=== PATIENT | male | born 1960 | race Caucasian/White ===

== ENCOUNTER 2018-01-23 20:17 | Emergency (ER) | payer MEDICARE, MEDICAID ==
[~2018-01-23] VITALS: Ht 180.3 cm; Wt 86.2 kg
[~2018-01-23 20:17] MED LIST: MORP100T22; TEMA30CA
[2018-01-23 20:28] VITALS: BP 162/94
[2018-01-23 21:20] LABS: Basophils # (auto) 0.1 uL; Basophils % (auto) 0.6 % (0.0-2.0); Eosinophils # (auto) 0 uL; Eosinophils % (auto) 0.1 % (0.0-7.0); Hematocrit 48.7 % (41.0-53.0); Hemoglobin 16.7 g/dL (13.5-17.5); Lymphocytes % (auto) 7.4 % (10.0-50.0); Mean Corpuscular Hemoglobin 29.5 pg (28.0-32.0); Mean Corpuscular Hgb Conc. 34.3 g/dL (32.0-36.0); Mean Corpuscular Volume 86.1 fL (80.0-100.0); Monocytes # (auto) 0.9 uL; Neutrophils # (auto) 10.9 uL; Neutrophils % (auto) 84.9 % (37.0-80.0); Nucleated Red Blood Cells % 0.1 %; Platelet Count (auto) 163 10^3/uL (140-450); Red Blood Cells 5.65 10^6/uL (4.5-5.90); Red Cell Distribution Width 14.2 % (11.8-14.3); White Blood Cell 12.8 10^3/uL (4.4-10.8)
[2018-01-23] MEDS ORDERED: HYDROcodone-ACET 10/325MG TAB PO ONE (21:45)
[2018-01-23] MEDS ORDERED: cefTRIAXone 1GM/10ml IVPUSH 10 ML IV ONE (21:45)
== END 2018-01-23 23:34 | disposition home or self-care (01) ==
LOC: EDBD 20:17 → ER 20:24
DX: J02.9 Acute pharyngitis, unspecified (principal); B37.0 Candidal stomatitis; M79.1 Myalgia; E11.9 Type 2 diabetes mellitus without complications; G89.29 Other chronic pain; M54.2 Cervicalgia; M54.9 Dorsalgia, unspecified; F12.10 Cannabis abuse, uncomplicated; F17.210 Nicotine dependence, cigarettes, uncomplicated; Z88.6 Allergy status to analgesic agent
CPT/HCPCS: 36415; 74176; 84484; 85025; 87070; 93005; 96374

== ENCOUNTER 2019-12-02 13:09 | Emergency (ER) | payer MEDICARE, MEDICAID ==
[~2019-12-02] VITALS: Ht 180.3 cm; Wt 99.8 kg
[~2019-12-02 13:09] MED LIST changes: -MORP100T22; +MORP1TAB15
[2019-12-02 13:24] VITALS: BP 184/96
[2019-12-02] MEDS ORDERED: HYDROcodone-ACET 10/325MG TAB PO ONE (14:00)
[2019-12-02 15:00] LABS: Basophils # (auto) 0.1 uL; Basophils % (auto) 1.2 % (0.0-2.0); Eosinophils # (auto) 0.2 uL; Eosinophils % (auto) 2.7 % (0.0-7.0); Hemoglobin 15.7 g/dL (13.5-17.5); Lymphocytes # (auto) 1.1 uL; Lymphocytes % (auto) 16.7 % (10.0-50.0); Mean Corpuscular Hemoglobin 30.5 pg (28.0-32.0); Mean Corpuscular Volume 87.1 fL (80.0-100.0); Monocytes # (auto) 0.6 uL; Monocytes % (auto) 9.3 % (0.0-12.0); Neutrophils # (auto) 4.6 uL; Neutrophils % (auto) 70.1 % (37.0-80.0); Platelet Count (auto) 147 10^3/uL (140-450); Red Blood Cells 5.17 10^6/uL (4.5-5.90); White Blood Cell 6.6 10^3/uL (4.4-10.8)
[2019-12-02 15:27] LABS: Albumin 2.2 g/dL (3.4-5.0); Calcium 8.5 mg/dL (8.5-10.1); Potassium 4.6 mmol/L (3.5-5.1)
[2019-12-02 15:31] LABS: BUN/Creatinine Ratio 15.7; Bilirubin, Total 0.6 mg/dL (0.2-1.0); Total Protein 6.1 g/dL (6.4-8.2)
== END 2019-12-02 20:16 | disposition left against medical advice (07) ==
LOC: ER 13:09 → EDBD 13:09 → ER 20:16
DX: R51 Headache (principal); I10 Essential (primary) hypertension; E11.65 Type 2 diabetes mellitus with hyperglycemia; E43 Unspecified severe protein-calorie malnutrition; Z68.30 Body mass index [BMI] 30.0-30.9, adult; Z87.11 Personal history of peptic ulcer disease
CPT/HCPCS: 36415; 70450; 71046; 80053; 85025; 93005

== ENCOUNTER 2020-02-01 12:14 | Inpatient (IN) | payer MEDICARE, MEDICAID ==
[~2020-02-01] VITALS: Ht 180.3 cm; Wt 102.7 kg
[2020-02-01 13:36] LABS: Basophils # (auto) 0.1 10 ^3/uL (0-0.2); Basophils % (auto) 1.5 % (0.0-2.0); Eosinophils # (auto) 0.2 10 ^3/uL (0-0.8); Hemoglobin 14.6 g/dL (13.5-17.5); Lymphocytes # (auto) 0.6 10 ^3/uL (0.4-5.4); Lymphocytes % (auto) 15.1 % (10.0-50.0); Mean Corpuscular Hemoglobin 30.3 pg (28.0-32.0); Mean Corpuscular Hgb Conc. 34.7 g/dL (32.0-36.0); Mean Corpuscular Volume 87.4 fL (80.0-100.0); Monocytes # (auto) 0.6 10 ^3/uL (0-1.3); Monocytes % (auto) 15.7 % (0.0-12.0); Neutrophils # (auto) 2.4 10 ^3/uL (1.6-8.6); Neutrophils % (auto) 61.7 % (37.0-80.0); Nucleated Red Blood Cells % 0.1 %; Platelet Count (auto) 116 10^3/uL (140-450); Red Blood Cells 4.81 10^6/uL (4.5-5.90); Red Cell Distribution Width 14.1 % (11.8-14.3); White Blood Cell 3.8 10^3/uL (4.4-10.8)
[2020-02-01 13:54] LABS: Albumin 2.2 g/dL (3.4-5.0); Anion Gap 5 (5-15); Blood Urea Nitrogen 17 mg/dL (7-18); Calcium 7.8 mg/dL (8.5-10.1); Carbon Dioxide 28 mmol/L (21-32); Chloride 105 mmol/L (98-107); Glucose 324 mg/dL (74-106); Potassium 4.3 mmol/L (3.5-5.1); Sodium 138 mmol/L (136-145)
[2020-02-01 14:01] LABS: Alanine Aminotransferase 31 U/L (16-61); Alkaline Phosphatase 181 U/L (45-117); Aspartate Aminotransferase 31 U/L (15-37); BUN/Creatinine Ratio 13.6; Bilirubin, Total 0.5 mg/dL (0.2-1.0); GFR African American 76 mL/min; GFR Non-African American 63 mL/min; Total Protein 5.9 g/dL (6.4-8.2)
[2020-02-01 14:29] LABS: INR 1.17 (0.9-1.15); Partial Thromboplastin Time 33.1 sec (23.64-32.05)
[2020-02-01] MEDS ORDERED: ONDANSETRON HCL 4 MG/2 ML VIAL IV ONE (14:45)
[2020-02-01] MEDS ORDERED: HYDROcodone-ACET 10/325MG TAB PO ONE (14:45)
[2020-02-01] MEDS ORDERED: MORPHINE SULF INJ 2 MG/ML SYRINGE 1ML IV ONE (14:45)
[2020-02-01 16:19] LABS: Urine Bacteria FEW /hpf (None Seen); Urine Blood 1+ /uL (Negative); Urine Specific Gravity 1.013 (1.001-1.035); Urine WBC 1 /hpf (0 - 3)
[2020-02-01] MEDS ORDERED: HYDROcodone-ACET 5/325MG TAB PO PRN (21:00)
[2020-02-01] MEDS ORDERED: NITROGLYCERIN 0.4 MG SL TAB SL PRN (21:00)
[2020-02-01] MEDS ORDERED: MORPHINE SULF INJ 2 MG/ML SYRINGE 1ML IV PRN (21:00)
[2020-02-01] MEDS ORDERED: IOHEXOL 350 MG/ML 100ML IJ ONE (21:14)
[2020-02-01] MEDS ORDERED: LISINOPRIL 20 MG TAB PO SCH (22:00)
--- NOTE | 2020-02-01 22:28 | NUR ---
PATIENT ARRIVED VIA WHEELCHAIR FROM EMERGENCY ROOM. HE STATES HAVING NO PAIN CURRENTLY. HE HAS NO COMPLAINTS OF SHORTNESS OF BREATH EITHER. PATIENT HAS RIGHT SIDE WEAKNESS FROM A PREVIOUS STROKE. HE IS ABLE TO AMBULATE WITH MINIMUM ASSISTANCE. HE HAS 2-3+ EDEMA BILATERALLY IN HIS LOWER EXTREMITIES. HE ALSO HAS NON PITTING EDEMA IN BILATERAL UPPER EXTREMITIES. BED IS LOKCED IN LOWEST POSITION WITH SIDE RAILS UP X2. WILL CONTINUE TO MONITOR.
[2020-02-01] MEDS: hydrALAZINE HCL 20 MG/ML VL IV PRN (22:55)
[2020-02-01 23:39] VITALS: BP 182/104
[2020-02-02] VITALS (8 sets, daily range): BP systolic 126–171; BP diastolic 57–102
[2020-02-02] MEDS ORDERED: traMADol HCL 50 MG TAB PO ONE (01:00)
[2020-02-02] MEDS: TEMAZEPAM 15 MG CAP PO PRN ×2 (01:17→23:34)
--- NOTE | 2020-02-02 02:00 | NUR ---
SENT MRSA SWAB TO LAB
[2020-02-02] MEDS ORDERED: GABA300C10 PO (02:47)
[2020-02-02] MEDS ORDERED: PANT-36 PO (02:47)
[2020-02-02] MEDS ORDERED: RIV20T PO (02:47)
[2020-02-02] MEDS ORDERED: LISI-646 PO (02:47)
[2020-02-02] MEDS ORDERED: CLIN300C8 PO (02:47)
[2020-02-02] MEDS ORDERED: TRAZ50TA2 PO (02:47)
--- NOTE | 2020-02-02 04:55 | NUR ---
PAGED DR. MILLS FOR POSSIBLE INSULIN SLIDING SCALE DUE TO PATIENT BEING DIABETIC AND PAIN MEDICATION. PATIENT STATES HE DOES NOT LIKE [facility]. AWAITING CALL BACK.
[2020-02-02] MEDS: hydrALAZINE HCL 20 MG/ML VL IV PRN (05:33)
--- NOTE | 2020-02-02 06:45 | NUR ---
PATIENT WAS FOUND ON FLOOR BY HIS BEDSIDE. HE WAS SLOW TO RESPOND AT 1ST BUT EVENTUALLY CAME TO BE MORE ALERT. I MYSELF WELL THREE OTHER STAFF MEMBERS WERE ABLE TO GET HIM BACK INTO BED. THE BED ALARM ON THE BED WAS ON BUT THE SCALE ON THE BED WAS NOT WORKING THEREFORE THE BE ALARM DID NOT GO OFF. SWAPPED BEDS WITH WORKING BED ALARM.
--- NOTE | 2020-02-02 06:55 | NUR ---
DR. Loly SERNA CALLED BACK. RECEIVED ORDER FOR PAIN MEDICATION, INSULIN SLIDING SCALE. NOTIFIED HIM THAT PATIENT HAD AN UNWITNESSED FALL APPROXIMATELY 10 MINUTES AGO. ORDER RECEIVED FOR A CT HEAD.
[2020-02-02] MEDS ORDERED: DEXTROSE (50%) 50ML SYRG IV PRN (07:00)
--- NOTE | 2020-02-02 07:30 | NUR ---
Opening Shift Note Assumed care of patient, awake and alert. No S/S of distress/SOB or pain. Instructed on POC and to call for assist PRN, will continue to monitor for changes Q1hr and PRN. Fall precautions in place per safety protocol.
[2020-02-02] MEDS: ACCU-CHEK COMFORT CURVE STRIP VI SCH ×4 (07:45→22:36)
[2020-02-02] MEDS: InsuLIN REG 1unit/0.01ml Soln (100units/ml) SC SCH ×4 (07:46→22:35)
[2020-02-02] MEDS ORDERED: LISINOPRIL 20 MG TAB PO SCH (08:00)
[2020-02-02] MEDS ORDERED: MORPHINE SULF INJ 2 MG/ML SYRINGE 1ML IV PRN (08:00)
[2020-02-02] MEDS: ONDANSETRON HCL 4 MG/2 ML VIAL IV PRN (08:55)
[2020-02-02 09:47] LABS: Calcium 7.9 mg/dL (8.5-10.1); Potassium 4.4 mmol/L (3.5-5.1)
[2020-02-02 09:54] LABS: Albumin 2.3 g/dL (3.4-5.0); BUN/Creatinine Ratio 15.9; Bilirubin, Total 0.6 mg/dL (0.2-1.0)
[2020-02-02] MEDS: CLOPIDOGREL BISULFATE 75 MG TAB PO SCH (10:56)
[2020-02-02] MEDS: LISINOPRIL 20 MG TAB PO SCH ×2 (10:58→22:09)
[2020-02-02] MEDS: dilTIAZem 120MG ER CAP PO SCH (10:58)
--- NOTE | 2020-02-02 13:00 | NUR ---
Hospitalist at bedside Spoke to MD Curtis regarding patient complaining of a headache and requesting ibuprofen. Received orders for Ibuprofen 800mg PO TID PRN and an order for Flexeril 10 mg PO TID for muscle spasms. Orders read back and verified. Will carry out new orders and will cont to monitor patient.
[2020-02-02] MEDS: CYCLOBENZAPRINE HCL 10 MG TAB PO SCH ×2 (13:16→22:09)
[2020-02-02] MEDS: IBUPROFEN 800 MG TAB PO PRN ×2 (13:16→22:10)
--- NOTE | 2020-02-02 19:08 | NUR ---
Endorsed care to night Teto Chen. Patient resting in bed, no distress, sob, or pain at this time.
--- NOTE | 2020-02-03 00:03 | NUR ---
DR. Loly SERNA BEDSIDE
[2020-02-03 05:00] VITALS: BP 123/75
[2020-02-03 05:06] LABS: Protein, Urine 1055.9 mg/dL (0.0-11.9)
[2020-02-03] MEDS: CYCLOBENZAPRINE HCL 10 MG TAB PO SCH ×2 (06:15→14:15)
[2020-02-03 06:36] LABS: Calcium 7.8 mg/dL (8.5-10.1); Potassium 3.8 mmol/L (3.5-5.1)
[2020-02-03 06:39] LABS: BUN/Creatinine Ratio 17.6
[2020-02-03] MEDS: InsuLIN REG 1unit/0.01ml Soln (100units/ml) SC SCH ×3 (07:02→17:25)
[2020-02-03] MEDS: ACCU-CHEK COMFORT CURVE STRIP VI SCH ×3 (07:02→17:26)
--- NOTE | 2020-02-03 07:15 | NUR ---
Opening Shift Note Assumed care of patient, awake and alert. Patient on 2L NC. No S/S of distress/SOB or pain. Instructed on POC and to call for assist PRN, will continue to monitor for changes Q1hr and PRN. Fall precautions in place per safety protocol.
[2020-02-03 09:00] VITALS: BP 137/79
[2020-02-03] MEDS ORDERED: cefTRIAXone 1GM/50ML D5W 50 ML IV SCH (09:00)
[2020-02-03] MEDS: dilTIAZem 120MG ER CAP PO SCH (10:25)
[2020-02-03] MEDS: CLOPIDOGREL BISULFATE 75 MG TAB PO SCH (10:25)
[2020-02-03] MEDS: LISINOPRIL 20 MG TAB PO SCH (10:26)
[2020-02-03 13:00] VITALS: BP 161/82
--- NOTE | 2020-02-03 13:15 | NUR ---
Patient requesting Xaralto, cough syrup for sore throat and coughing. Called MD Curtis regarding patient requesting received new orders for med neb treatments, cough syrup and xaralto meds. Medication orders were read back and verified. Will carry our new orders and will cont to monitor patient.
[2020-02-03] MEDS: ONDANSETRON HCL 4 MG/2 ML VIAL IV PRN (13:20)
[2020-02-03] MEDS ORDERED: PROMETHAZINE W/CODEINE 5 ML ORAL SYRUP PO PRN (14:15)
[2020-02-03] MEDS: IBUPROFEN 800 MG TAB PO PRN (14:41)
[2020-02-03 17:00] VITALS: BP 142/72
[2020-02-03] MEDS ORDERED: RIVAROXABAN 20 MG TAB PO SCH (18:00)
[2020-02-03] MEDS ORDERED: IPRATROPIUM BROM 0.5 MG/2.5ML INH SOL NEB SCH (18:00)
[2020-02-03] MEDS ORDERED: ALBUTEROL SULF 2.5 MG/0.5ML(0.5%) NEB SOLN NEB SCH (18:00)
--- NOTE | 2020-02-03 18:29 | NUR ---
Respiratory note: PT REFUSING BREATHING TX AT THIS TIME DUE TO PT NOT FEELING WELL AND THROWING UP. PT ON RA. NO RESP DISTRESS NOTED. SPO2 97%, HR 90. RR 22. BS CLR AND DIM AT BASES. WILL CONTINUE TO MONITOR PT T/O SHIFT.
--- NOTE | 2020-02-03 19:18 | NUR ---
Endorsed care to night MOI Hernandez.
--- NOTE | 2020-02-03 19:20 | NUR ---
opening note pt states that he wants to leave now because he is not getting the medications he wants. He explained that he takes 600mg of neurontin at bedtime, as well as 300mg at midnight. I explained to him that I will be contacting his Dr. Curtis in regards to patient resuming all of his home medications. The patient insisted that he wanted to leave regardless of what happens.
--- NOTE | 2020-02-03 19:45 | NUR ---
pt approached the nursing station, and wanted someone to take his IV out. He stated that he called his son, and his son will be picking him up in the front lobby shortly. I explained to him that I am currently following up with his concerns. However, patient stated that I dont "have to worry about it, I will be ok". Patient stated that he was going to leave "no matter what". I explained to him that he was leaving against medical advice. I advised him of the risks of leaving without receiving the proper care necessary for his medical condition. Pt explained that he understood the risks, however still "wanted to leave".
--- NOTE | 2020-02-03 20:25 | NUR ---
pt signed the AMA form, and has received his home medications from the pharmacy. IV was d/c, as well as telebox. at this time, pt stated that he has talked with dr Loly Curtis a minute ago, and the patent states that Dr. Curtis wants him to come to the office for followup on Thursday.
--- NOTE | 2020-02-03 20:30 | NUR ---
pt walked out of [id number], and has left [facility] A[facility].
--- NOTE | 2020-02-03 20:52 | NUR ---
Notified Dr. Curtis of pt leaving [facility] AMA.
== END 2020-02-03 20:30 | disposition left against medical advice (07) | DRG 305 ==
LOC: EDUNIT# 12:14 → ER 12:14 → EDBD 12:14 → TELE 12:15 → TELE-CENTR 22:25
PROVIDERS: ADMIT Specialist; ATTEND Specialist
DX: I16.1 Hypertensive emergency (principal); G81.94 Hemiplegia, unspecified affecting left nondominant side; R51 Headache; E11.22 Type 2 diabetes mellitus with diabetic chronic kidney disease; N18.9 Chronic kidney disease, unspecified; E11.21 Type 2 diabetes mellitus with diabetic nephropathy; I12.9 Hypertensive chronic kidney disease with stage 1 through stage 4 chronic kidney disease, or unspecified chronic kidney disease; I25.10 Atherosclerotic heart disease of native coronary artery without angina pectoris; Z80.0 Family history of malignant neoplasm of digestive organs; Z80.8 Family history of malignant neoplasm of other organs or systems; Z82.49 Family history of ischemic heart disease and other diseases of the circulatory system; Z86.73 Personal history of transient ischemic attack (TIA), and cerebral infarction without residual deficits; Z86.718 Personal history of other venous thrombosis and embolism; Z83.3 Family history of diabetes mellitus; Z87.441 Personal history of nephrotic syndrome; Z87.11 Personal history of peptic ulcer disease; Z53.29 Procedure and treatment not carried out because of patient's decision for other reasons
CPT/HCPCS: 36415; 70450; 71045; 71275; 80048; 80053; 80061; 81001; 82088; 82306; 82533; 82570; 82962; 83036; 83735; 83835; 84156; 84244; 84443; 84484; 85025; 85610; 85730; 87081; 93005; 93971; 96374; 96375; G0378; J0696; J1815; J2405

== ENCOUNTER 2024-02-22 01:01 | Inpatient (IN) | payer MEDICARE, MEDICAID ==
[~2024-02-22] VITALS: Ht 180.3 cm; Wt 82.4 kg
[~2024-02-22 01:01] MED LIST changes: +ASPI-543 PO; +CLOP75TA70 PO; +CYCL-611 PO; +FERR1TAB17 PO; +INSU1INJ30; -MORP1TAB15; +NIFE90TA75 PO; +PANT40T PO; +ROPI5TAB20 PO; +SEVE800T10 PO; +SODI5PAK PO; -TEMA30CA; +TRAM50TA2 PO; +TRAZ1TAB12 PO
[2024-02-22 01:41] LABS: Basophils # (auto) 0.1 10 ^3/uL (0-0.2); Basophils % (auto) 0.9 % (0.0-2.0); Eosinophils # (auto) 0.3 10 ^3/uL (0-0.8); Eosinophils % (auto) 3.8 % (0.0-7.0); Hematocrit 34.1 % (41.0-53.0); Hemoglobin 11.4 g/dL (13.5-17.5); Lymphocytes # (auto) 0.5 10 ^3/uL (0.4-5.4); Lymphocytes % (auto) 6.7 % (10.0-50.0); Mean Corpuscular Hgb Conc. 33.6 g/dL (32.0-36.0); Mean Corpuscular Volume 92.5 fL (80.0-100.0); Monocytes # (auto) 0.9 10 ^3/uL (0-1.3); Monocytes % (auto) 13.2 % (0.0-12.0); Neutrophils # (auto) 5.2 10 ^3/uL (1.6-8.6); Neutrophils % (auto) 75.4 % (37.0-80.0); Red Blood Cells 3.68 10^6/uL (4.5-5.90); Red Cell Distribution Width 14.4 % (11.8-14.3); White Blood Cell 6.9 10^3/uL (4.4-10.8)
[2024-02-22 01:45] VITALS: PULSE 78; RESP 15; O2SAT 99
[2024-02-22 01:58] LABS: Alanine Aminotransferase 49 U/L (7-40); Albumin 2.8 g/dL (3.2-4.8); Alkaline Phosphatase 522 U/L (46-116); Anion Gap 10 (5-15); Aspartate Aminotransferase 62 U/L (13-40); BUN/Creatinine Ratio 9.8 (10.0-20.0); Bilirubin, Total 0.3 mg/dL (0.2-1.0); Calcium 8.2 mg/dL (8.7-10.4); Carbon Dioxide 26 mmol/L (20-30); Chloride 95 mmol/L (98-107); Glucose 181 mg/dL (74-106); Lipase 39 U/L (12-53); Potassium 5.3 mmol/L (3.5-5.1); Sodium 131 mmol/L (136-145); Total Protein 5.2 g/dL (5.7-8.2)
[2024-02-22 02:13] LABS: Blood Urea Nitrogen 82 mg/dL (9-23)
[2024-02-22] MEDS: InsuLIN REG 1unit/0.01ml Soln (100units/ml) IV ONE (03:30)
[2024-02-22] MEDS: CALCIUM GLUC 1,000mg/50ml-NS 50 ML IV ONE (03:31)
[2024-02-22] MEDS: DEXTROSE (50%) 50ML SYRG IV ONE (03:32)
[2024-02-22] MEDS: SODIUM BICARB 8.4% 50Meq/50ml SYR INJ IV ONE (03:32)
[2024-02-22] MEDS: ALBUTEROL SULF 2.5 MG/0.5ML(0.5%) NEB SOLN NEB ONE (03:40)
[2024-02-22] MEDS: FUROSEMIDE 20 MG/2 ML VIAL IV ONE (03:50)
[2024-02-22] MEDS: SODIUM ZIRCONIUM CYCL 10 GM PAK PO ONE (03:50)
[2024-02-22] MEDS: ONDANSETRON HCL 4 MG/2 ML VIAL IV ONE (03:51)
[2024-02-22] MEDS: MORPHINE SULFATE INJ 2 MG/ml SYRG IV ONE (03:51)
[2024-02-22 07:40] VITALS: PULSE 85; RESP 13; O2SAT 98
[2024-02-22] MEDS ORDERED: DEXTROSE (50%) 50ML SYRG IV PRN (10:30)
[2024-02-22 11:16] LABS: Potassium 5.4 mmol/L (3.5-5.1)
[2024-02-22 11:23] LABS: Magnesium 2.2 mg/dL (1.6-2.6)
[2024-02-22] MEDS: ONDANSETRON HCL 4 MG/2 ML VIAL IV PRN (11:56)
[2024-02-22] MEDS: MORPHINE SULFATE INJ 2 MG/ml SYRG IV PRN (11:57)
[2024-02-22 11:59] LABS: INR 1.05 (0.9-1.15)
[2024-02-22] MEDS: ENOXAPARIN SOD 30 MG/0.3 ML SYRINGE SC SCH (11:59)
[2024-02-22] MEDS: SEVELAMER 800 MG TAB PO SCH (12:00)
[2024-02-22] MEDS: ACCU-CHEK COMFORT CURVE STRIP VI SCH (12:08)
[2024-02-22] MEDS: InsuLIN REG 1unit/0.01ml Soln (100units/ml) SC SCH (12:18)
[2024-02-22] MEDS ORDERED: ALBUMIN 25% 100 ML IV PRN (12:45)
[2024-02-22] MEDS ORDERED: LIDOCAINE 1% HCL (LOCAL ANESTH.) INJ 20ML MDV ID ONE (13:00)
[2024-02-22] MEDS: SODIUM CHL 0.9% 1000 ML BAG XX ONE (15:20)
[2024-02-22] MEDS: LIDOCAINE 1% HCL (LOCAL ANESTH.) INJ 20ML MDV ID ONE (15:20)
[2024-02-22 19:00] VITALS: PULSE 74; RESP 17; O2SAT 96
[2024-02-22 20:00] VITALS: PULSE 74
[2024-02-22 21:00] VITALS: BP 169/65; PULSE 82; RESP 20; TEMP 97.4; O2SAT 95
[2024-02-23] VITALS (8 sets, daily range): BP systolic 99–162; BP diastolic 45–89; PULSE 80–94; RESP 18–20; TEMP 97.3–98.3; O2SAT 93–99
[2024-02-23] MEDS: NIFEdipine ER 30 MG TAB PO SCH (06:15)
[2024-02-23 09:57] LABS: Basophils # (auto) 0.1 10 ^3/uL (0-0.2); Basophils % (auto) 0.7 % (0.0-2.0); Eosinophils # (auto) 0.3 10 ^3/uL (0-0.8); Eosinophils % (auto) 3.6 % (0.0-7.0); Hematocrit 38.2 % (41.0-53.0); Hemoglobin 12.7 g/dL (13.5-17.5); Lymphocytes # (auto) 0.5 10 ^3/uL (0.4-5.4); Lymphocytes % (auto) 6.9 % (10.0-50.0); Mean Corpuscular Hemoglobin 30.9 pg (28.0-32.0); Mean Corpuscular Hgb Conc. 33.3 g/dL (32.0-36.0); Mean Corpuscular Volume 92.8 fL (80.0-100.0); Monocytes # (auto) 1.3 10 ^3/uL (0-1.3); Monocytes % (auto) 16.3 % (0.0-12.0); Neutrophils # (auto) 5.6 10 ^3/uL (1.6-8.6); Neutrophils % (auto) 72.5 % (37.0-80.0); Nucleated Red Blood Cells % 0.1 %; Red Blood Cells 4.11 10^6/uL (4.5-5.90); Red Cell Distribution Width 14.9 % (11.8-14.3); White Blood Cell 7.8 10^3/uL (4.4-10.8)
[2024-02-23 10:11] LABS: Alanine Aminotransferase 39 U/L (7-40); Alkaline Phosphatase 466 U/L (46-116); Calcium 8.4 mg/dL (8.5-10.1); Carbon Dioxide 30 mmol/L (20-30); Chloride 98 mmol/L (98-107)
[2024-02-23 10:12] LABS: Albumin 3.1 g/dL (3.2-4.8); Anion Gap 6 (5-15); Aspartate Aminotransferase 40 U/L (13-40); BUN/Creatinine Ratio 7.3 (10.0-20.0); Bilirubin, Total 0.4 mg/dL (0.2-1.0); Glucose 151 mg/dL (74-106); Sodium 134 mmol/L (136-145); Total Protein 5.6 g/dL (5.7-8.2)
[2024-02-23 10:22] LABS: Blood Urea Nitrogen 49 mg/dL (9-23)
[2024-02-23 10:24] LABS: Potassium 5.9 mmol/L (3.5-5.1)
[2024-02-23] MEDS: FUROSEMIDE 20 MG/2 ML VIAL IV ONE (11:15)
[2024-02-23] MEDS: ASPirin-EC 81 mg tab PO SCH (11:52)
[2024-02-23] MEDS: CLOPIDOGREL BISULFATE 75 MG TAB PO SCH (11:52)
[2024-02-23] MEDS: PANTOPRAZOLE 40 MG TAB PO SCH (11:52)
[2024-02-23] MEDS: ALBUTEROL SULF 2.5 MG/0.5ML(0.5%) NEB SOLN NEB ONE (12:16)
[2024-02-23] MEDS: DEXTROSE (50%) 50ML SYRG IV ONE (13:30)
[2024-02-23] MEDS: CALCIUM GLUC 1,000mg/50ml-NS 50 ML IV ONE (13:31)
[2024-02-23] MEDS: InsuLIN REG 1unit/0.01ml Soln (100units/ml) IV ONE (13:36)
[2024-02-23] MEDS: SODIUM ZIRCONIUM CYCL 10 GM PAK PO ONE (14:21)
[2024-02-23] MEDS ORDERED: B-CO-5 PO (14:58)
[2024-02-23] MEDS ORDERED: SENN1TAB14 PO (14:58)
[2024-02-23] MEDS ORDERED: ASPI-543 PO (14:58)
[2024-02-23] MEDS ORDERED: BISA10SU52 PR (14:58)
[2024-02-23] MEDS ORDERED: DOCU-94 PO (14:58)
[2024-02-23] MEDS ORDERED: TRIA0.25 PO (14:58)
[2024-02-24] VITALS (8 sets, daily range): BP systolic 127–168; BP diastolic 57–80; PULSE 77–93; RESP 16–20; TEMP 97.3–98.1; O2SAT 91–97
[2024-02-24 06:24] LABS: Basophils # (auto) 0.1 10 ^3/uL (0-0.2); Basophils % (auto) 0.9 % (0.0-2.0); Eosinophils # (auto) 0.3 10 ^3/uL (0-0.8); Eosinophils % (auto) 3.8 % (0.0-7.0); Hematocrit 33.3 % (41.0-53.0); Hemoglobin 11.3 g/dL (13.5-17.5); Lymphocytes # (auto) 0.9 10 ^3/uL (0.4-5.4); Lymphocytes % (auto) 10.7 % (10.0-50.0); Mean Corpuscular Hemoglobin 31.7 pg (28.0-32.0); Mean Corpuscular Volume 93.2 fL (80.0-100.0); Monocytes # (auto) 1.3 10 ^3/uL (0-1.3); Monocytes % (auto) 15.2 % (0.0-12.0); Neutrophils # (auto) 5.8 10 ^3/uL (1.6-8.6); Neutrophils % (auto) 69.4 % (37.0-80.0); Nucleated Red Blood Cells % 0.1 %; Red Blood Cells 3.58 10^6/uL (4.5-5.90); Red Cell Distribution Width 14.5 % (11.8-14.3); White Blood Cell 8.4 10^3/uL (4.4-10.8)
[2024-02-24 06:37] LABS: Alanine Aminotransferase 35 U/L (7-40); Albumin 3.1 g/dL (3.2-4.8); Alkaline Phosphatase 392 U/L (46-116); Anion Gap 10 (5-15); Aspartate Aminotransferase 36 U/L (13-40); BUN/Creatinine Ratio 8.3 (10.0-20.0); Calcium 8.6 mg/dL (8.5-10.1); Carbon Dioxide 28 mmol/L (20-30); Chloride 95 mmol/L (98-107); Glucose 113 mg/dL (74-106); Sodium 133 mmol/L (136-145)
[2024-02-24 06:38] LABS: Bilirubin, Total 0.4 mg/dL (0.2-1.0); Total Protein 5.5 g/dL (5.7-8.2)
[2024-02-24 06:50] LABS: Blood Urea Nitrogen 61 mg/dL (9-23)
[2024-02-24 06:52] LABS: Potassium 5.6 mmol/L (3.5-5.1)
[2024-02-24] MEDS: SODIUM CHL 0.9% 1000 ML BAG XX ONE (07:00)
[2024-02-24] MEDS: ALBUTEROL SULF 2.5 MG/0.5ML(0.5%) NEB SOLN NEB ONE (08:15)
[2024-02-24] MEDS: DEXTROSE (50%) 50ML SYRG IV ONE (08:15)
[2024-02-24] MEDS: InsuLIN REG 1unit/0.01ml Soln (100units/ml) IV ONE (08:15)
[2024-02-24] MEDS: FUROSEMIDE 20 MG/2 ML VIAL IV ONE (08:15)
[2024-02-24] MEDS: CALCIUM GLUC 1,000mg/50ml-NS 50 ML IV ONE (08:15)
[2024-02-24 18:57] LABS: Chloride 97 mmol/L (98-107); Potassium 4.6 mmol/L (3.5-5.1); Sodium 134 mmol/L (136-145)
[2024-02-24 18:58] LABS: Anion Gap 5 (5-15); Calcium 8.7 mg/dL (8.5-10.1); Carbon Dioxide 32 mmol/L (20-30)
[2024-02-24 19:03] LABS: BUN/Creatinine Ratio 7.2 (10.0-20.0); Glucose 156 mg/dL (74-106)
[2024-02-24 19:06] LABS: Blood Urea Nitrogen 38 mg/dL (9-23)
[2024-02-24] MEDS: DOCUSATE SOD 100 MG CAP PO PRN (22:29)
[2024-02-24] MEDS: hydrALAZINE HCL 20 MG/ML VL IV ONE (23:07)
[2024-02-25 05:00] VITALS: BP 180/89; PULSE 87; RESP 18; TEMP 97.5; O2SAT 99
[2024-02-25 05:56] LABS: Basophils # (auto) 0.1 10 ^3/uL (0-0.2); Eosinophils # (auto) 0.2 10 ^3/uL (0-0.8); Eosinophils % (auto) 3.5 % (0.0-7.0); Hematocrit 35.1 % (41.0-53.0); Hemoglobin 11.9 g/dL (13.5-17.5); Lymphocytes # (auto) 0.7 10 ^3/uL (0.4-5.4); Lymphocytes % (auto) 9.5 % (10.0-50.0); Mean Corpuscular Hemoglobin 31.3 pg (28.0-32.0); Mean Corpuscular Hgb Conc. 33.8 g/dL (32.0-36.0); Mean Corpuscular Volume 92.6 fL (80.0-100.0); Monocytes # (auto) 1.1 10 ^3/uL (0-1.3); Monocytes % (auto) 16.6 % (0.0-12.0); Neutrophils # (auto) 4.7 10 ^3/uL (1.6-8.6); Neutrophils % (auto) 69.4 % (37.0-80.0); Red Blood Cells 3.79 10^6/uL (4.5-5.90); Red Cell Distribution Width 14.4 % (11.8-14.3); White Blood Cell 6.8 10^3/uL (4.4-10.8)
[2024-02-25 06:08] LABS: Alanine Aminotransferase 28 U/L (7-40); Alkaline Phosphatase 448 U/L (46-116); Anion Gap 7 (5-15); Aspartate Aminotransferase 32 U/L (13-40); Blood Urea Nitrogen 35 mg/dL (9-23); Calcium 8.7 mg/dL (8.7-10.4); Carbon Dioxide 29 mmol/L (20-30); Chloride 96 mmol/L (98-107); Glucose 147 mg/dL (74-106); Potassium 5.1 mmol/L (3.5-5.1); Sodium 132 mmol/L (136-145)
[2024-02-25 06:09] LABS: Bilirubin, Total 0.4 mg/dL (0.2-1.0); Total Protein 5.5 g/dL (5.7-8.2)
[2024-02-25 07:35] VITALS: BP 140/104; PULSE 82; RESP 18
[2024-02-25 08:00] VITALS: PULSE 84
[2024-02-25 09:00] VITALS: BP 162/66; PULSE 81; RESP 18; TEMP 98.2; O2SAT 98
[2024-02-25] MEDS: HEPARIN SODIUM (PORCINE) 5000 UNITS/ML 1ML VIAL SC SCH (10:00)
[2024-02-25 13:00] VITALS: BP 136/73; PULSE 93; RESP 14; TEMP 97.4; O2SAT 98
[2024-02-25] MEDS: ALBUMIN 25% IV ONE (13:11)
[2024-02-25 13:43] VITALS: BP 134/66; PULSE 93; RESP 17
== END 2024-02-25 16:30 | disposition home or self-care (01) | DRG 391 ==
LOC: EDBD 01:01 → ER 01:01 → TELE-EAST 10:38 → TELE 10:38 → TELE-EAST 18:35
PROVIDERS: ADMIT Internal Medicine; ATTEND Internal Medicine
PROC: 5A1D70Z Performance of Urinary Filtration, Intermittent, Less than 6 Hours Per Day (ICD-10-PCS; 2024-02-22)
PROC: 5A1D70Z Performance of Urinary Filtration, Intermittent, Less than 6 Hours Per Day (ICD-10-PCS; 2024-02-24)
PROC: 0W9G3ZZ Drainage of Peritoneal Cavity, Percutaneous Approach (ICD-10-PCS; principal; 2024-02-25)
DX: K52.9 Noninfective gastroenteritis and colitis, unspecified (principal); N18.6 End stage renal disease; E44.1 Mild protein-calorie malnutrition; R18.8 Other ascites; I12.0 Hypertensive chronic kidney disease with stage 5 chronic kidney disease or end stage renal disease; E87.5 Hyperkalemia; I25.10 Atherosclerotic heart disease of native coronary artery without angina pectoris; R74.01 Elevation of levels of liver transaminase levels; E11.22 Type 2 diabetes mellitus with diabetic chronic kidney disease; E66.01 Morbid (severe) obesity due to excess calories; Z88.6 Allergy status to analgesic agent; Z74.01 Bed confinement status; Z99.2 Dependence on renal dialysis; Z86.73 Personal history of transient ischemic attack (TIA), and cerebral infarction without residual deficits; Z82.49 Family history of ischemic heart disease and other diseases of the circulatory system; Z83.3 Family history of diabetes mellitus; Z80.0 Family history of malignant neoplasm of digestive organs; Z80.8 Family history of malignant neoplasm of other organs or systems; Z68.25 Body mass index [BMI] 25.0-25.9, adult; Z87.11 Personal history of peptic ulcer disease; Z79.4 Long term (current) use of insulin; K74.69 Other cirrhosis of liver
CPT/HCPCS: 36415; 49083; 71045; 76700; 76942; 80048; 80053; 82962; 83690; 83735; 84132; 84484; 85025; 85610; 87081; 87340; 90935; 93005; 94640; 96365; 96372; 96375; 99291; G0378; J1642; J1815; J2001; J2405; P9047